=== PATIENT | male | born 1960 | race Caucasian/White ===

== ENCOUNTER 2023-12-05 12:13 | Emergency (ER) | payer MEDICAID ==
[~2023-12-05] VITALS: Ht 165.1 cm; Wt 65.9 kg
[~2023-12-05 12:13] MED LIST: IBUP200C5 PO
[2023-12-05 12:26] VITALS: TEMP 98.2
[2023-12-05 13:29] LABS: BASOPHILS % (AUTO) 0.8 % (0.0-2.0); HEMATOCRIT 39.2 % (41-53); HEMOGLOBIN 13.5 g/dL (13.5-17.5); LYMPHOCYTES # (AUTO) 2.2 K/uL (1.0-4.8); LYMPHOCYTES % (AUTO) 31.6 % (22.0-44.0); MEAN CORPUSCULAR HEMOGLOBIN 32.4 pg (26.0-34.0); MEAN CORPUSCULAR HGB CONC 34.3 G/dL (31.0-37.0); MEAN CORPUSCULAR VOLUME 94 fL (80-100); MONOCYTES # (AUTO) 0.5 K/uL (0.1-1.0); MONOCYTES % (AUTO) 7.6 % (2.0-9.0); NEUTROPHILS # (AUTO) 4.2 K/uL (1.8-7.7); PLATELET COUNT (AUTO) 161 K/uL (150-450); RED BLOOD CELL COUNT(AUTO) 4.16 MIL/uL (4.50-5.90); WHITE BLOOD COUNT (AUTO) 7.1 K/uL (4.5-11.0)
[2023-12-05 13:38] LABS: CARBON DIOXIDE 30 mmol/L (22-29); CHLORIDE 104 mmol/L (98-107); POTASSIUM 4.2 mmol/L (3.5-5.1); SODIUM SERUM 143 mmol/L (136-145)
[2023-12-05 13:39] LABS: ANION GAP 9 mmol/L (8-16); CALCIUM, TOTAL 9.1 mg/dL (8.8-10.5); CREATININE 0.89 mg/dL (0.60-1.30); GLOMERULAR FILTR. RATE CALC > 60 mL/min (>60); GLUCOSE,RANDOM 101 mg/dL (70-110); UREA NITROGEN, BLOOD 17 mg/dL (7-18)
[2023-12-05 13:44] LABS: ALANINE AMINOTRANSFERASE 31 U/L (12-78); ALBUMIN 3.9 g/dL (3.4-5.0); ALKALINE PHOSPHATASE 61 U/L (46-116); ASPARTATE AMINOTRANSFERASE 23 U/L (15-37); BILIRUBIN,TOTAL 0.3 mg/dL (0.1-1.0); TOTAL PROTEIN, SERUM 6.8 g/dL (6.4-8.2)
[2023-12-05 13:46] LABS: TROPONIN I-HIGH SENSITIVITY 40 ng/L (<76)
[2023-12-05 13:51] LABS: B-TYPE NATRIURETIC PEPTIDE 35 pg/mL (0-100)
[2023-12-05 14:40] VITALS: PULSE 108; RESP 18; O2SAT 99
[2023-12-05] MEDS ORDERED: ROSU20TA73 PO (14:44)
[2023-12-05] MEDS ORDERED: TIOT4MIS2 IH (14:44)
[2023-12-05] MEDS ORDERED: LIDO700A30 TD (14:44)
[2023-12-05] MEDS ORDERED: ALBU18HF12 IH (14:44)
[2023-12-05] MEDS ORDERED: ASPI-1444 PO (14:44)
[2023-12-05] MEDS ORDERED: MONT-40 PO (14:44)
[2023-12-05] MEDS ORDERED: ALBUTEROL SULFATE 2.5 MG/0.5 ML NEB SOLUTION NEB ONE (14:45)
[2023-12-05] MEDS ORDERED: PredniSONE 20 MG TABLET PO ONE (14:45)
[2023-12-05] MEDS ORDERED: IPRATROPIUM BROMIDE 0.5 MG/2.5 ML NEB SOLUTION NEB ONE (14:45)
[2023-12-05 14:55] VITALS: PULSE 67; RESP 18; O2SAT 100
[2023-12-05 15:16] LABS: COVID AG,FIA SOURCE NASAL SWAB
[2023-12-05] MEDS ORDERED: PRED-554 PO (15:28)
[2023-12-05] MEDS ORDERED: DOCU-385 PO (15:29)
[2023-12-05 15:38] LABS: SARS-COV2 (COVID) ANTIGEN,FIA Negative (Negative)
[2023-12-05 15:39] LABS: INFLUENZA TYPE A NEGATIVE FOR TYPE A (NEGATIVE); INFLUENZA TYPE B NEGATIVE FOR TYPE B (NEGATIVE)
[2023-12-05 15:45] VITALS: BP 138/79; PULSE 74; RESP 18
== END 2023-12-05 16:10 | disposition home or self-care (01) ==
LOC: EMS 12:13
DX: J45.909 Unspecified asthma, uncomplicated (principal); K64.4 Residual hemorrhoidal skin tags; Z98.890 Other specified postprocedural states; Z88.6 Allergy status to analgesic agent; Z88.5 Allergy status to narcotic agent; Z20.822 Contact with and (suspected) exposure to COVID-19
CPT/HCPCS: 99285; 71045; 87426; 80053; 83880; 84484; 85025; 87804; 36415; 94640; 93005; J7512; J7613